=== PATIENT | male | born 1955 | race Caucasian/White ===

== ENCOUNTER 2023-03-01 07:28 | Outpatient (CLI) | payer MEDICARE, SELFPAY | END 2023-03-01 07:29 | disposition home or self-care (01) | LOC: NFLDREF 12:14 | PROVIDERS: PCP Internal Medicine; Referring Provider Internal Medicine; Visit Provider Internal Medicine | DX: Z00.00 Encounter for general adult medical examination without abnormal findings (principal); Z12.5 Encounter for screening for malignant neoplasm of prostate; Z13.6 Encounter for screening for cardiovascular disorders | CPT/HCPCS: 80053; 80061; 84153 ==

== ENCOUNTER 2024-03-07 07:30 | Outpatient (CLI) | payer MEDICARE, SELFPAY | END 2024-03-07 07:31 | disposition home or self-care (01) | LOC: NFLDREF 03-14 07:49 | PROVIDERS: PCP Internal Medicine; Referring Provider Internal Medicine; Visit Provider Internal Medicine | DX: Z13.220 Encounter for screening for lipoid disorders (principal); Z13.228 Encounter for screening for other metabolic disorders; Z12.5 Encounter for screening for malignant neoplasm of prostate | CPT/HCPCS: 80053; 80061; G0103 ==

== ENCOUNTER 2025-03-16 07:35 | Outpatient (CLI) | payer MEDICARE, SELFPAY | END 2025-03-16 07:36 | disposition home or self-care (01) | LOC: NFLDREF 03-18 02:50 | PROVIDERS: PCP Internal Medicine; Referring Provider Internal Medicine; Visit Provider Internal Medicine | DX: E78.5 Hyperlipidemia, unspecified (principal); N40.0 Benign prostatic hyperplasia without lower urinary tract symptoms; Z12.5 Encounter for screening for malignant neoplasm of prostate | CPT/HCPCS: 80053; 80061; G0103 ==

== ENCOUNTER 2025-03-25 07:30 | Outpatient (CLI) | payer MEDICARE, SELFPAY ==
--- NOTE | 2025-03-25 08:57 | P.ANES_ITS ---
Anesthesia Charges Start Date/Time Anesthesia Start Date: 03/25/25 Anesthesia Start Time: 08:23 Stop Date/Time Anesthesia Stop Date: 03/25/25 Anesthesia Stop Time: 08:57 Summary Extremes of Age - Over 70 or under 1: VP DESIGN Coding CPT Codes CPT Codes: ANES LWR INTST NDSC NOS - [id number] ([id number]) P1 - NORMAL HEALTHY PATIENT, QX - VP DESIGN SVC W/ MED DIRECTION, QK - FOLEY ARTIST 2-4 CNCRNT ANES PROC Additional Codes: Summary - Extremes of Age - Over 70 or under 1: VP DESIGN ([id number])
--- NOTE | 2025-03-25 08:57 | W.ANESCHARGE ---
Anesthesia Charges Start Date/Time Anesthesia Start Date: 03/25/25 Anesthesia Start Time: 08:23 Stop Date/Time Anesthesia Stop Date: 03/25/25 Anesthesia Stop Time: 08:57 Summary Extremes of Age - Over 70 or under 1: STILL OPERATOR BRANDY Coding CPT Codes CPT Codes: ANES LWR INTST NDSC NOS - [id number] ([id number]) P1 - NORMAL HEALTHY PATIENT, QX - STILL OPERATOR BRANDY SVC W/ MED DIRECTION, QK - BURNER OPERATOR 2-4 CNCRNT ANES PROC Additional Codes: Summary - Extremes of Age - Over 70 or under 1: STILL OPERATOR BRANDY ([id number])
--- NOTE | 2025-03-25 09:16 | P.ANES_ITS ---
Anesthesia Charges Start Date/Time Anesthesia Start Date: 03/25/25 Anesthesia Start Time: 08:23 Stop Date/Time Anesthesia Stop Date: 03/25/25 Anesthesia Stop Time: 08:57 Summary Extremes of Age - Over 70 or under 1: MDA Coding CPT Codes CPT Codes: ASHLIE LWR INTST NDSC NOS - [id number] ([id number]) P1 - NORMAL HEALTHY PATIENT, QK - HYDROLOGY TECHNICIAN 2-4 CNCRNT ANESpike PROC, QX - ELECTRONICS DETAIL DRAFTSPERSON SVC W/ MD MED DIRECTION Additional Codes: Summary - Extremes of Age - Over 70 or under 1: MDA ([id number])
--- NOTE | 2025-03-25 09:16 | W.ANESCHARGE ---
Anesthesia Charges Start Date/Time Anesthesia Start Date: 03/25/25 Anesthesia Start Time: 08:23 Stop Date/Time Anesthesia Stop Date: 03/25/25 Anesthesia Stop Time: 08:57 Summary Extremes of Age - Over 70 or under 1: MDA Coding CPT Codes CPT Codes: ASHLIE LWR INTST NDSC NOS - [id number] ([id number]) P1 - NORMAL HEALTHY PATIENT, QK - NUCLEAR FUELS RESEARCH ENGINEER 2-4 CNCRNT ANESpike PROC, QX - QUALITY REVIEW SPECIALIST SVC W/ MD MED DIRECTION Additional Codes: Summary - Extremes of Age - Over 70 or under 1: MDA ([id number])
== END 2025-03-25 07:31 | disposition home or self-care (01) ==
LOC: OP CLINIC 07:32
PROVIDERS: PCP Internal Medicine; Visit Provider Internal Medicine Gastroenterology
DX: Z12.11 Encounter for screening for malignant neoplasm of colon (principal); D12.3 Benign neoplasm of transverse colon; Z86.0101 Personal history of adenomatous and serrated colon polyps
CPT/HCPCS: 00811; 45380; 45385; 88305; 99100; J2704